=== PATIENT | male | born 1995 | race African-American/Black ===

== ENCOUNTER 2021-07-18 16:42 | Emergency (ER) | payer OTHER ==
[~2021-07-18] VITALS: Ht 177.8 cm; Wt 70.3 kg
[2021-07-18] MEDS ORDERED: NOHOMEMEDICATIONS (16:54)
[2021-07-18 17:16] LABS: ABSOLUTE NEUTROPHILS 11.3 thou/uL (1.4-8.2); BASOPHILS 0.4 % (0.0-2.0); EOSINOPHILS 0.3 % (0.0-3.0); HEMATOCRIT 44.5 % (42.0-52.0); LYMPHOCYTES 15.6 % (24.0-44.0); MCHC 33.7 g/dL (28.0-37.0); MCV 103.9 fL (80.0-100.0); MONOCYTES 4.8 % (1.0-8.0); PLATELET COUNT 210 thou/uL (150-400); POLYS 78.9 % (36.0-66.0); RBC 4.29 mil/uL (4.50-6.00); RDW 12.2 % (10.5-14.5); WBC 14.4 thou/uL (4.0-11.0)
[2021-07-18 17:22] LABS: CALCIUM 10.5 mg/dL (8.5-10.1); CREATININE 1.3 mg/dL (0.7-1.3); POTASSIUM 3.9 mmol/L (3.5-5.1)
[2021-07-18 17:28] LABS: ALBUMIN 5.3 g/dL (3.4-5.0); DIRECT BILIRUBIN 0.2 mg/dL (<0.1-0.2); TOTAL BILIRUBIN 1.5 mg/dL (0.2-1.0); TOTAL PROTEIN 9.3 g/dL (6.4-8.2)
[2021-07-18 19:10] LABS: URINE BILIRUBIN 1+ (Negative); URINE BLOOD NEGATIVE (Negative); URINE CLARITY CLEAR; URINE COLOR YELLOW; URINE GLUCOSE-RANDOM* NEGATIVE (Negative); URINE KETONES 2+ (Negative); URINE LEUKOCYTES-REFLEX NEGATIVE (Negative); URINE NITRITE-REFLEX NEGATIVE (Negative); URINE PROTEIN (DIPSTICK) TRACE (Negative); URINE SPECIFIC GRAVITY >= 1.030 (1.005-1.035); URINE UROBILINOGEN 0.2 E.U./dl (0.2-1.0)
[2021-07-18] MEDS ORDERED: ONDANSETRON HCL4 M2 PO (19:26)
[2021-07-18 19:29] LABS: ICTOTEST (BILI CONFIRMATORY) Negative (Negative)
[2021-07-18 19:31] LABS: BACTERIA-REFLEX 1-9 Few /HPF (None Seen); CASTS None Seen /LPF (None Seen); CRYSTALS None Seen /LPF (None Seen); MUCUS 0-3 Light strn/LPF (None Seen); SQUAMOUS 0-3 Few /LPF (0-3); URINE RBC 1-2 Rare /HPF (NONE SEEN); URINE WBC-REFLEX 0-5 Rare /HPF (0-5)
[2021-07-18 19:42] VITALS: BP 117/89
== END 2021-07-18 19:40 | disposition home or self-care (01) ==
LOC: ER 16:42
PROVIDERS: Nurse Practitioner
DX: R11.2 Nausea with vomiting, unspecified (principal); F12.90 Cannabis use, unspecified, uncomplicated